=== PATIENT | male | born 1960 | race Caucasian/White ===

== ENCOUNTER 2018-05-24 09:56 | Day surgery (SDC) | payer BC ==
[~2018-05-24 09:56] MED LIST: Lactated Ringers 1,000 ML IV SCH
--- NOTE | 2018-05-24 10:30 | PCM.PREANE ---
Preanesthetic Assessment - Procedure Proposed Procedure: colonoscopy - Anesthesia/Transfusion/Family Hx Anesthesia History: Prior Anesthesia Without Reaction Family History of Anesthesia Reaction: No Transfusion History: No Prior Transfusion(s) - Review of Systems General: Other (tremor and lip smacking) Pulmonary: Other (smoker 3/4 ppk/day) Cardiovascular: No Symptoms Gastrointestinal: Diarrhea Neurological: Tremors Other: Reports: None - Physical Assessment Height: 5 ft 7 in Weight: 86.636 kg ASA Class: 2 Mental Status: Alert & Oriented x3 Airway Class: Mallampati = 2 Dentition: Reports: Edentulous Thyro-Mental Finger Breadths: 3 Mouth Opening Finger Breadths: 3 ROM/Head Extension: Full Lungs: Clear to Auscultation Cardiovascular: Regular Rate - Allergies Allergies/Adverse Reactions: Allergies Allergy/AdvReac Type Severity Reaction Status Date / Time No Known Allergies Allergy Verified 05/17/18 15:06 - Blood Blood Available: No Product(s) Available: None - Anesthesia Plan Pre-Op Medication Ordered: None - Acknowledgements Anesthesia Type Planned: MAC Pt an Appropriate Candidate for the Planned Anesthesia: Yes Alternatives and Risks of Anesthesia Discussed w Pt/Guardian: Yes Pt/Guardian Understands and Agrees with Anesthesia Plan: Yes PreAnesthesia Questionnaire HEENT History: Reports: Other (See Below) Other HEENT History: uses reading glasses Gastrointestinal History: Reports: Hemorrhoids Neurological History: Reports: Other (See Below) Other Neuro History: has tremors of both hands - Past Surgical History GI Surgical History: Reports: Hernia, Inguinal - SUBSTANCE USE Smoking Status *Q: Current Every Day Smoker Tobacco Use Within Last Twelve Months: Cigarettes, Cigars Recreational Drug Use History: No - HOME MEDS Home Medications: Home Meds . [No Known Home Meds] 05/17/18 [History] - CURRENT (IN HOUSE) MEDS Current Meds: Current Medications Lactated Ringer's (Ringers, Lactated) 1,000 mls @ 125 mls/hr IV ASDIRECTED [facility]
[2018-05-24] MEDS ORDERED: Propofol 200 MG/20 ML SDV ONE (11:39)
[2018-05-24] MEDS ORDERED: Lidocaine 2% 5 ML SDV ONE (11:40)
[2018-05-24] MEDS ORDERED: Midazolam 1 MG/ML 2 ML SDV ONE (11:40)
[2018-05-24] MEDS ORDERED: fentaNYL 100 MCG/2 ML SDV ONE (11:40)
--- NOTE | 2018-05-24 12:41 | PCM.OPNOTE ---
- General Post-Op/Procedure Note Date of Surgery/Procedure: 05/24/18 Operative Procedure(s): Colonoscopy with snare rectal polypectomy Pre Op Diagnosis: Change in bowel habits Post-Op Diagnosis: Proximal rectal polyp Anesthesia Technique: MAC (ASA II) Primary Surgeon: Rodolfo Avendano Embedded Software Engineer: Maggy Tamayo Condition: Good Free Text/Narrative:: DICTATION 408395 CPT CODE 00407
[2018-05-24] MEDS ORDERED: Lactated Ringers 1,000 ML IV SCH (12:45)
--- NOTE | 2018-05-24 13:13 | OR ---
SURGEON: Rodolfo Avendano M.D. DATE OF PROCEDURE: 05/24/2018 OPERATION PERFORMED: Colonoscopy with snare rectal polypectomy. ANESTHESIA: MAC. ASA CLASSIFICATION: II. PREOPERATIVE DIAGNOSIS: Change in bowel habits. POSTOPERATIVE DIAGNOSIS: Rectal polyp. DESCRIPTION OF PROCEDURE: The patient was taken to the endoscopy room and positioned on the endoscopy table in the left lateral decubitus position. Time-out was called for appropriate identification of the patient and procedure. Monitored anesthesia care was provided. The colonoscope was inserted into the rectum and advanced without difficulty to the cecum where the colonoscope was retroflexed to visualize the ascending colon from below. The cecum was identified by internal landmarks and external pressure. The cecum, ascending colon, hepatic flexure, transverse colon, splenic flexure, descending colon, and sigmoid colon were very well visualized. There were no tumors, polyps, diverticula, or angiodysplastic changes. One polyp was encountered in the proximal rectum and this was removed with snare electrocautery and recovered. The polypectomy site was inspected, and there was no bleeding noted. The colonoscope was then withdrawn to the distal rectum and retroflexed to visualize the anal orifice from above. Again, no tumors or polyps were seen. There were no acute hemorrhoidal changes. The colonoscope was then straightened, the rectum aspirated, and the colonoscope removed. The patient tolerated the procedure well and was taken to recovery room in stable condition. FOREIGN GARCIA /[id number]
--- NOTE | 2018-05-24 14:39 | PCM48HPAN ---
Post Anesthesia Note - EVALUATION WITHIN 48HRS OF ANESTHETIC Vital Signs in Normal Range: Yes Patient Participated in Evaluation: Yes Respiratory Function Stable: Yes Airway Patent: Yes Cardiovascular Function Stable: Yes Hydration Status Stable: Yes Pain Control Satisfactory: Yes Nausea and Vomiting Control Satisfactory: Yes Mental Status Recovered: Yes Pulse Rate: 60 SaO2: 97 Resp Rate: 16 Temperature: 36.1 C Blood Pressure: 111/71 Pulse Rate: 60 - COMMENTS/OBSERVATIONS Free Text/Narrative:: Doing well. No problems noted. Ready for discharge.
== END 2018-05-24 13:30 | disposition home or self-care (01) ==
LOC: MW.SDS 09:56
PROVIDERS: ATTEND Surgery
DX: D12.8 Benign neoplasm of rectum (principal); R19.7 Diarrhea, unspecified; F17.210 Nicotine dependence, cigarettes, uncomplicated
CPT/HCPCS: 45385; J2001; J2250; J2704; J3010; J7120; 88305

== ENCOUNTER 2023-09-27 09:13 | Emergency (ER) | payer BC, MEDICARE, OTHER ==
[2023-09-27] MEDS ORDERED: Naloxone 0.4 MG/ML SDV IVPUSH PRN (10:08)
[2023-09-27] MEDS ORDERED: Sodium Chloride 0.9% 1,000 ML IV SCH (10:15)
[2023-09-27] MEDS: Morphine 4 MG/ML Syringe IVPUSH ONE (11:29)
[2023-09-27] MEDS: Sodium Chloride 0.9% 10 ML Syringe FLUSH PRN ×2 (11:31→11:32)
[2023-09-27 11:32] LABS: BASOPHILS ABSOLUTE AUTO 0.06 K/uL (0.00-0.20); BASOPHILS PERCENT AUTO 0.6 % (0.0-1.0); EOSINOPHILS ABSOLUTE AUTO 0.26 K/uL (0.00-0.45); EOSINOPHILS PERCENT AUTO 2.6 % (0.0-6.0); HEMATOCRIT 44.4 % (42.0-52.0); IMMATURE GRAN ABSOLUTE AUTO 0.01 K/uL (0.00-0.05); IMMATURE GRAN PERCENT AUTO 0.1 % (0.0-0.4); LYMPHOCYTES ABSOLUTE AUTO 1.68 K/uL (1.00-4.80); LYMPHOCYTES PERCENT AUTO 17.1 % (24.0-44.0); MEAN CORPUSCULAR HGB CONC 33.8 g/dL (32.0-36.0); MEAN CORPUSCULAR VOLUME 88.8 fL (83.0-99.0); MEAN PLATELET VOLUME 9.6 fL (9.4-12.4); MONOCYTES PERCENT AUTO 7.1 % (0.0-8.0); NEUTROPHILS ABSOLUTE AUTO 7.11 K/uL (1.80-7.70); NEUTROPHILS PERCENT AUTO 72.5 % (41.0-71.0); PLATELET COUNT,PLT 296 K/uL (150-400); WHITE BLOOD CELL COUNT,WBC 9.82 K/uL (3.9-11.3)
[2023-09-27] MEDS: Sodium Chloride 0.9% 2.5 ML Syringe FLUSH PRN ×2 (11:32)
[2023-09-27] MEDS: Sodium Chloride 0.9% 1,000 ML IV ONE (11:42)
[2023-09-27 12:19] LABS: A/G RATIO 1.1 (0.9-1.6); ALBUMIN 3.9 g/dL (3.4-5.0); BILIRUBIN TOTAL 1.4 mg/dL (0.2-1.0); CALCIUM 8.9 mg/dL (8.5-10.1); CARBON DIOXIDE,CO2 31.4 mmol/L (21.0-32.0); CREATININE 1.1 mg/dL (0.8-1.3); EST CRCL DRUG DOSING (CG) 60.42 mL/min; POTASSIUM,K 4.6 mmol/L (3.5-5.1); PROTEIN TOTAL,TP 7.3 g/dL (6.4-8.2)
[2023-09-27] MEDS: Iopamidol 755 MG/ML 500 ML Multipack Bottle IVPUSH STA (13:21)
[2023-09-27] MEDS ORDERED: Morphine 2 MG/ML SYRINGE IVPUSH PRN (15:29)
== END 2023-09-27 16:45 | disposition home or self-care (01) ==
LOC: MW.ED 09:13
DX: K40.90 Unilateral inguinal hernia, without obstruction or gangrene, not specified as recurrent (principal); J44.9 Chronic obstructive pulmonary disease, unspecified; F17.210 Nicotine dependence, cigarettes, uncomplicated; Z75.8 Other problems related to medical facilities and other health care
CPT/HCPCS: 36415; 71045; 74177; 80053; 83690; 85025; 93005; 96361; 96374; 99284; J2270; J3490; J7030; Q9967; 36410; 93010

== ENCOUNTER 2023-09-28 07:39 | Day surgery (SDC) | payer MEDICARE ==
[2023-09-28] MEDS ORDERED: Ropivacaine 0.5% 5 MG/ML 30 ML SDV ONE (07:43)
[2023-09-28] MEDS ORDERED: Albuterol 0.083% 2.5 MG/3 ML Neb Soln NEB PRN (07:44)
[2023-09-28] MEDS ORDERED: Metoclopramide 10 MG/2 ML SDV IVPUSH PRN (07:44)
[2023-09-28] MEDS ORDERED: Morphine 2 MG/ML SYRINGE IVPUSH PRN (07:44)
[2023-09-28] MEDS ORDERED: dexmedeTOMIDine HCl 200 MCG/2 ML SDV ONE (07:44)
[2023-09-28] MEDS ORDERED: Water For Injection, Sterile 20 ML ONE ×3 (07:44→07:47)
[2023-09-28] MEDS ORDERED: Ondansetron 4 MG/2 ML SDV IVPUSH PRN (07:44)
[2023-09-28] MEDS ORDERED: Naloxone 0.4 MG/ML SDV IVPUSH PRN (07:44)
[2023-09-28] MEDS ORDERED: HYDROmorphone 1 MG/ML Syringe IVPUSH PRN (07:44)
[2023-09-28] MEDS ORDERED: droPERidol 5 MG/2 ML SDV IVPUSH PRN (07:44)
[2023-09-28] MEDS ORDERED: fentaNYL 50 MCG/ML SDV IVPUSH PRN (07:44)
[2023-09-28] MEDS ORDERED: Morphine 10 MG/ML SDV ONE ×2 (07:46→07:47)
[2023-09-28] MEDS ORDERED: ceFAZolin 2 GM Vial ONE (07:59)
[2023-09-28] MEDS ORDERED: Ketorolac 30 MG/ML SDV ONE (07:59)
[2023-09-28] MEDS ORDERED: Dexamethasone 4 MG/ML 5 ML MDV ONE (07:59)
[2023-09-28] MEDS ORDERED: Rocuronium Bromide 50 MG/5 ML Syringe ONE (07:59)
[2023-09-28] MEDS ORDERED: Lidocaine 1% 5 ML VIAL ONE (07:59)
[2023-09-28] MEDS ORDERED: Sugammadex Sodium 200 MG/2 ML VIAL IV ONE (07:59)
[2023-09-28] MEDS ORDERED: fentaNYL 100 MCG/2 ML SDV ONE (08:00)
[2023-09-28] MEDS ORDERED: propofoL 100 ML ONE (08:03)
[2023-09-28] MEDS: Lactated Ringers 1,000 ML IV SCH (08:35)
[2023-09-28] MEDS ORDERED: fentaNYL 250 MCG/5 ML SDV ONE (08:47)
[2023-09-28] MEDS ORDERED: Bupivacaine 0.5% 30 ML SDV ONE (08:52)
[2023-09-28] MEDS: Carbidopa/Levodopa 25-100 MG Tab PO ONE (12:01)
== END 2023-09-28 14:45 | disposition home or self-care (01) ==
LOC: MW.SDS 07:39
PROVIDERS: ATTEND Surgery
DX: K40.91 Unilateral inguinal hernia, without obstruction or gangrene, recurrent (principal); G20.A1 Parkinson's disease without dyskinesia, without mention of fluctuations; F17.210 Nicotine dependence, cigarettes, uncomplicated; Z79.899 Other long term (current) drug therapy
CPT/HCPCS: 49651; A9270; J0131; J0665; J0690; J1100; J1885; J2270; J2704; J2795; J3010; J3490; J7120; C1781

== ENCOUNTER 2024-09-20 12:29 | Emergency (ER) | payer MEDICARE | END 2024-09-20 13:02 | LOC: MW.ED 12:29 | DX: G20.A1 Parkinson's disease without dyskinesia, without mention of fluctuations (principal); Z13.9 Encounter for screening, unspecified; F17.210 Nicotine dependence, cigarettes, uncomplicated; Z79.899 Other long term (current) drug therapy | CPT/HCPCS: 99283 ==

== ENCOUNTER 2024-12-26 08:49 | Day surgery (SDC) | payer MEDICARE ==
[2024-12-26] MEDS: Lactated Ringers 1,000 ML IV SCH (10:50)
[2024-12-26] MEDS ORDERED: propofoL 500 MG/50 ML 50 ML ONE (12:22)
[2024-12-26] MEDS ORDERED: Lactated Ringers 1,000 ML IV SCH (13:45)
== END 2024-12-26 14:30 | disposition home or self-care (01) ==
LOC: MW.SDS 08:49
PROVIDERS: ATTEND Surgery
DX: Z12.11 Encounter for screening for malignant neoplasm of colon (principal); F17.210 Nicotine dependence, cigarettes, uncomplicated; Z79.899 Other long term (current) drug therapy; Z86.0100 Personal history of colon polyps, unspecified
CPT/HCPCS: 00811; 45378; J2371; J2704; J7120

== ENCOUNTER 2024-12-29 07:53 | Day surgery (SDC) | payer MEDICARE ==
[~2024-12-29 07:53] MED LIST changes: +Albuterol 0.083% 2.5 MG/3 ML Neb Soln NEB PRN; -Lactated Ringers 1,000 ML IV SCH; +Naloxone 0.4 MG/ML SDV IVPUSH PRN; +Ondansetron 4 MG/2 ML SDV IVPUSH PRN; +ceFAZolin 2 GM in Water For Injection, Sterile 20 ML IVPUSH ONE
[2024-12-29] MEDS ORDERED: Midazolam 1 MG/ML 2 ML SDV ONE (08:39)
[2024-12-29] MEDS ORDERED: Propofol 200 MG/20 ML SDV ONE ×2 (08:39→10:06)
[2024-12-29] MEDS ORDERED: fentaNYL 100 MCG/2 ML SDV ONE ×2 (08:39→11:12)
[2024-12-29] MEDS ORDERED: dexmedeTOMIDine HCl 200 MCG/2 ML SDV ONE (08:42)
[2024-12-29] MEDS ORDERED: Ropivacaine 0.5% 5 MG/ML 30 ML SDV ONE (08:44)
[2024-12-29] MEDS: Lactated Ringers 1,000 ML IV SCH (09:20)
[2024-12-29] MEDS ORDERED: Ondansetron 4 MG/2 ML SDV ONE (11:49)
[2024-12-29] MEDS ORDERED: Ondansetron 4 MG/2 ML SDV IVPUSH PRN (12:09)
[2024-12-29] MEDS ORDERED: Lactated Ringers 1,000 ML IV SCH (12:15)
[2024-12-29] MEDS: fentaNYL 50 MCG/ML SDV IVPUSH PRN (13:14)
[2024-12-29] MEDS: Acetaminophen/HYDROcodone 325-5 MG Tab PO PRN (14:25)
== END 2024-12-29 14:35 | disposition home or self-care (01) ==
LOC: MW.SDS 07:53
PROVIDERS: ATTEND Surgery
DX: K40.30 Unilateral inguinal hernia, with obstruction, without gangrene, not specified as recurrent (principal); J44.9 Chronic obstructive pulmonary disease, unspecified; F17.210 Nicotine dependence, cigarettes, uncomplicated; Z79.899 Other long term (current) drug therapy
CPT/HCPCS: 49507; A9270; J0665; J0690; J2003; J2250; J2704; J2795; J3010; J7120; C1781; J2405; J3490